=== PATIENT | male | born 2000 | race Two or more races ===

== ENCOUNTER 2024-07-23 04:06 | Emergency (ER) | payer OTHER ==
[~2024-07-23] VITALS: Ht 170.2 cm; Wt 79.4 kg
[2024-07-23] MEDS ORDERED: PROMETHAZINE HCL 50 MG/ML AMPUL IM STA (04:36)
[2024-07-23] MEDS ORDERED: FAMOTIDINE/PF 20 MG/2 ML VIAL IV PUSH STA (04:36)
[2024-07-23] MEDS ORDERED: 0.9 % SODIUM CHLORIDE 1,000 ML IV ONE (04:45)
== END 2024-07-23 10:46 | disposition home or self-care (01) ==
LOC: ER 04:06
DX: K29.30 Chronic superficial gastritis without bleeding (principal); Z88.6 Allergy status to analgesic agent